=== PATIENT | female | born 1995 | race Caucasian/White ===

== ENCOUNTER 2023-09-11 20:06 | Emergency (ER) | payer OTHER ==
[~2023-09-11] VITALS: Ht 165.1 cm; Wt 96.6 kg
[2023-09-11 20:11] VITALS: BP 133/71; PULSE 102; RESP 16; TEMP 98.2; O2SAT 99
[2023-09-11 20:29] VITALS: BP 133/71; PULSE 102; RESP 16; TEMP 98.2; O2SAT 98
[2023-09-11] MEDS ORDERED: NITR100C7 PO (21:33)
== END 2023-09-11 21:48 | disposition home or self-care (01) ==
LOC: MED 20:06
DX: O23.41 Unspecified infection of urinary tract in pregnancy, first trimester (principal); R03.0 Elevated blood-pressure reading, without diagnosis of hypertension; N39.0 Urinary tract infection, site not specified; Z3A.13 13 weeks gestation of pregnancy
CPT/HCPCS: 59025; 81002; 81025; 87086; 99284